=== PATIENT | female | born 1935 | race Caucasian/White ===

== ENCOUNTER 2021-09-04 13:45 | Emergency (ER) | payer MEDICARE, SELFPAY ==
[2021-09-04 14:01] VITALS: BP 185/66; PULSE 86; RESP 18; TEMP 37.7; O2SAT 100
--- NOTE | 2021-09-04 14:14 | ED.URI ---
HPI - URI/Sore Throat General Stated Complaint: fever chills Time Seen by Provider: 09/04/21 14:15 Source: patient and RN notes reviewed Mode of arrival: ambulatory Limitations: no limitations History of Present Illness HPI Narrative: 85-year-old female presented for complaint of fevers and chills and sinus pressure/congestion; onset yesterday. States temperature was 101 yesterday. This morning she reports feeling improvement. Denies cough, shortness of breath, heart racing, nausea or vomiting. She denies sick contacts. She is not vaccinated for COVID or flu. MD elicited complaint: cough Related Data Home Medications Medication Instructions Recorded Confirmed atorvastatin 20 mg tablet 1 tablet PO DAILY 09/04/21 09/04/21 lisinopril 20 mg tablet 1 tablet PO DAILY 09/04/21 09/04/21 metoprolol tartrate 75 mg tablet 1 tablet PO BID 09/04/21 09/04/21 sertraline 100 mg tablet 1 tablet PO DAILY 09/04/21 09/04/21 tramadol 50 mg tablet 1 tablet PO BID PRN Pain 09/04/21 09/04/21 Allergies Allergy/AdvReac Type Severity Reaction Status Date / Time morphine AdvReac Severe Anxiety Verified 09/04/21 14:32 codeine AdvReac Intermediate Nausea and Verified 09/04/21 14:32 Vomiting Review of Systems Review of Systems: CONSTITUTIONAL: Endorses chills, sweats, fever EYES: Denies visual changes, redness, or discharge ENT: Reports rhinorrhea, congestion, sinus pain CARDIOVASCULAR: Denies chest pain, palpitations, edema RESPIRATORY: Reports cough, post nasal drainage. Denies dyspnea GASTROINTESTINAL: Denies abdominal pain, nausea, vomiting, diarrhea SKIN: Denies rash or itching MUSCULOSKELETAL: Denies myalgia NEUROLOGIC: Denies headache Exam Narrative: GENERAL: Ill-appearing, nontoxic no acute distress. HEAD: Normocephalic EYES: PERRLA, conjunctivae clear ENT: Mucous membranes moist. TM pearly rayo with dull light reflex bilaterally; no tragal tenderness. Oropharynx erythematous without lesions or exudate, no drooling, no hoarseness, no trismus, uvula midline. No tripod positioning, muffled voice, soft palate or pharyngeal wall bulging NECK: Supple. No lymphadenopathy CHEST: Clear to auscultation, breath sounds equal. No wheezing, rhonchi, rales, or stridor. No respiratory distress, speaks in full sentences. HEART: Regular rate and rhythm. No murmur heard. SKIN: Warm, dry, no rash. NEURO: Alert and oriented x3. PSYCH: Normal mood and affect Course Course Emergency Course: Patient is aware of diagnosis, understands and agrees to treatment plan. Anticipatory guidance given. Patient agrees to follow-up as directed and is aware of reasons to seek care at the emergency department. Portions of this record may have been created with voice recognition software Level of Care: Express Care Visit Vital Signs Vital signs: Vital Signs Temperature 100 F H 09/04/21 14:01 Pulse Rate 86 09/04/21 14:01 Respiratory Rate 18 09/04/21 14:01 Blood Pressure 185/66 H 09/04/21 14:01 Pulse Oximetry 100 09/04/21 14:01 Oxygen Delivery Room Air 09/04/21 14:01 Temperature 100 F H 09/04/21 14:01 Pulse Rate 86 09/04/21 14:01 Respiratory Rate 18 09/04/21 14:01 Blood Pressure 185/66 H 09/04/21 14:01 Pulse Oximetry 100 09/04/21 14:01 Oxygen Delivery Room Air 09/04/21 14:01 reviewed MDM - URI/Sore Throat MDM Narrative Medical decision making narrative: COVID-positive. Reviewed results with patient. She is advised on supportive care and quarantine restrictions She is also advised to contact her primary care provider regarding the antiviral medication. Verbalizes understanding Differential Diagnosis Differential diagnosis: Likely upper respiratory infection, sinusitis and viral infection Discharge Plan Discharge Clinical Impression: COVID-19 Patient Disposition: Home, Self-Care Condition: Stable Instructions: COVID-19 (Coronavirus Disease 2019) (ED) Additional Instructions: Your rapid C
[2021-09-04 14:35] VITALS: BP 178/74
== END 2021-09-04 14:35 | disposition home or self-care (01) ==
PROVIDERS: Emergency Provider Nurse Practitioner Family; PCP Internal Medicine
DX: U07.1 COVID-19 (principal)
CPT/HCPCS: 87081; 87426; 87804; 87880; 99213; C9803; G0463